=== PATIENT | female | born 1940 | race Caucasian/White ===

== ENCOUNTER 2024-06-05 06:05 | Inpatient (IN) | payer MEDICARE ==
[2024-06-05] VITALS (7 sets, daily range): BP systolic 110–122; BP diastolic 39–54; TEMP 97.6–98.2; O2SAT 96–98
[~2024-06-05] VITALS: Ht 152.4 cm; Wt 55.3 kg
[2024-06-05] MEDS ORDERED: ANESTHESIA TRAY IN PYXIS 1 EA TRAY MC ONE (07:01)
[2024-06-05] MEDS ORDERED: LIDOCAINE 2%-EPI 1:100,000 30 ML VIAL ONE (07:01)
[2024-06-05] MEDS ORDERED: dexaMETHasone SOD PHOSPHATE 1 ML ONE (07:01)
[2024-06-05] MEDS ORDERED: VANCOMYCIN 1 GM VIAL ONE (07:01)
[2024-06-05] MEDS ORDERED: FAMOTIDINE/PF INJ 20 MG/2 ML VIAL IV ONE (07:20)
[2024-06-05] MEDS ORDERED: FENTANYL PF 100MCG/2ML AMPUL ONE (07:20)
[2024-06-05] MEDS ORDERED: ACETAMINOPHEN 325 MG TABLET ONE (07:20)
[2024-06-05] MEDS ORDERED: ROCURONIUM BROMIDE 50 MG/5 ML ONE (07:21)
[2024-06-05] MEDS: ACETAMINOPHEN 325 MG TABLET PO PRN (07:27)
[2024-06-05] MEDS ORDERED: LEVO100T PO (10:28)
[2024-06-05] MEDS ORDERED: CALC0.253 PO (10:28)
[2024-06-05] MEDS ORDERED: ESCI10TA PO (10:28)
[2024-06-05] MEDS ORDERED: ASPI-1169 PO (10:28)
[2024-06-05] MEDS ORDERED: AMLO2.5T2 PO (10:28)
[2024-06-05] MEDS ORDERED: LOSA25TA27 PO (10:28)
[2024-06-05] MEDS ORDERED: CARV3.12 PO (10:28)
[2024-06-05] MEDS ORDERED: DONE10TA44 PO (10:28)
[2024-06-05] MEDS ORDERED: ATOR40TA PO (10:28)
[2024-06-05] MEDS ORDERED: LEVO75TA PO (10:29)
[2024-06-05] MEDS ORDERED: ACETAMINOPHEN 325 MG TABLET PO PRN ×2 (11:30→12:30)
[2024-06-05] MEDS ORDERED: ONDANSETRON HCL/PF 4 MG/2 ML VIAL IV PRN (12:30)
[2024-06-05] MEDS ORDERED: HYDROMORPHONE 1 MG/1 ML DISP.SYRIN IV PRN (12:30)
[2024-06-05] MEDS: IV NS 0.9% 1,000 ML IV PRN (12:31)
[2024-06-05] MEDS: CARVEDILOL 3.125 MG TABLET PO SCH (16:56)
[2024-06-05] MEDS: VANCOMYCIN 1 GM in IV D5W 250ml IV SCH (20:08)
[2024-06-06] MEDS: LEVOTHYROXINE SODIUM 75 MCG TABLET PO SCH (07:37)
[2024-06-06] MEDS: ASPIRIN 81 MG TAB.CHEW PO SCH (08:12)
[2024-06-06] MEDS: CALCITRIOL 0.25 MCG CAPSULE PO SCH (08:12)
[2024-06-06] MEDS: ATORVASTATIN 40 MG TABLET PO SCH (08:12)
[2024-06-06] MEDS: DONEPEZIL 5 MG TABLET PO SCH (08:12)
[2024-06-06] MEDS: ESCITALOPRAM OXALATE (10 MG) 10 MG TABLET PO SCH (08:12)
[2024-06-06 08:13] VITALS: BP 130/48
[2024-06-06] MEDS: LOSARTAN POTASSIUM 25 MG TABLET PO SCH (08:13)
[2024-06-06] MEDS: AMLODIPINE BESYLATE 2.5 MG TABLET PO SCH (08:13)
== END 2024-06-06 14:45 | disposition home or self-care (01) | DRG 496 ==
LOC: DS 06:05 → MED 10:19
PROVIDERS: ADMIT Internal Medicine; ATTEND Internal Medicine
PROC: 0N5R0ZZ Destruction of Maxilla, Open Approach (ICD-10-PCS; principal; 2024-06-05)
PROC: 0NUR07Z Supplement Maxilla with Autologous Tissue Substitute, Open Approach (ICD-10-PCS; 2024-06-05)
PROC: 0NSR04Z Reposition Maxilla with Internal Fixation Device, Open Approach (ICD-10-PCS; 2024-06-05)
DX: T84.69XA Infection and inflammatory reaction due to internal fixation device of other site, initial encounter (principal); S02.40CK Maxillary fracture, right side, subsequent encounter for fracture with nonunion; S02.40DK Maxillary fracture, left side, subsequent encounter for fracture with nonunion; K12.30 Oral mucositis (ulcerative), unspecified; K09.9 Cyst of oral region, unspecified; Y83.8 Other surgical procedures as the cause of abnormal reaction of the patient, or of later complication, without mention of misadventure at the time of the procedure; Y92.009 Unspecified place in unspecified non-institutional (private) residence as the place of occurrence of the external cause; M81.0 Age-related osteoporosis without current pathological fracture; M27.2 Inflammatory conditions of jaws; M19.90 Unspecified osteoarthritis, unspecified site; X58.XXXD Exposure to other specified factors, subsequent encounter; G30.9 Alzheimer's disease, unspecified; F02.80 Dementia in other diseases classified elsewhere, unspecified severity, without behavioral disturbance, psychotic disturbance, mood disturbance, and anxiety; I10 Essential (primary) hypertension; E89.0 Postprocedural hypothyroidism; W19.XXXA Unspecified fall, initial encounter; Y92.9 Unspecified place or not applicable; E78.5 Hyperlipidemia, unspecified; E11.69 Type 2 diabetes mellitus with other specified complication; Z79.84 Long term (current) use of oral hypoglycemic drugs; Z79.82 Long term (current) use of aspirin; Z79.899 Other long term (current) drug therapy; Z88.0 Allergy status to penicillin; Z88.8 Allergy status to other drugs, medicaments and biological substances
CPT/HCPCS: 87081-TC; A4223; A4338; C1713; G0378; J1100; J2405; J2704; J3010; J3370; J3490; J7030; J7050; J7060

== ENCOUNTER 2024-10-16 08:00 | Inpatient (IN) | payer MEDICARE ==
[~2024-10-16] VITALS: Ht 152.4 cm; Wt 63.5 kg
[~2024-10-16 08:00] MED LIST: AMLO2.5T2 PO; ASPI-1169 PO; ATOR40TA PO; CALC0.253 PO; CARV3.12 PO; DONE10TA44 PO; ESCI10TA PO; LEVO75TA PO; LOSA25TA27 PO
[2024-10-16] MEDS ORDERED: VANCOMYCIN 1 GM VIAL ONE (09:37)
[2024-10-16] MEDS ORDERED: OXYMETAZOLINE HCL NASAL SPRAY 30 ML BOTTLE NS ONE (09:37)
[2024-10-16] MEDS ORDERED: dexaMETHasone SOD PHOSPHATE 1 ML ONE (09:37)
[2024-10-16] MEDS ORDERED: LIDOCAINE 2%-EPI 1:100,000 30 ML VIAL ONE (09:37)
[2024-10-16] MEDS ORDERED: FENTANYL PF 100MCG/2ML AMPUL ONE (11:56)
[2024-10-16] MEDS ORDERED: HYDROMORPHONE 1 MG/1 ML DISP.SYRIN IV PRN (14:30)
[2024-10-16] MEDS ORDERED: ONDANSETRON HCL/PF 4 MG/2 ML VIAL IV PRN (14:30)
[2024-10-16] MEDS ORDERED: ACETAMINOPHEN 325 MG TABLET PO PRN (14:30)
[2024-10-16 15:00] VITALS: BP 145/57; TEMP 97.7; O2SAT 94
[2024-10-16] MEDS: IV NS 0.9% 1,000 ML IV PRN (15:06)
[2024-10-16 20:00] VITALS: BP 129/53; TEMP 98.5; O2SAT 94
[2024-10-17] MEDS: VANCOMYCIN 1 GM in IV D5W 250ml IV SCH (00:11)
[2024-10-17 08:00] VITALS: BP 138/55; TEMP 98.6; O2SAT 95
[2024-10-17 09:30] VITALS: BP 138/55
[2024-10-17] MEDS ORDERED: ONDANSETRON HCL/PF 4 MG/2 ML VIAL IVP PRN (09:30)
[2024-10-17] MEDS: AMLODIPINE BESYLATE 2.5 MG TABLET PO SCH (09:30)
[2024-10-17] MEDS ORDERED: Z GUARD REMEDY 4 OZ OINT TP PRN (09:30)
[2024-10-17] MEDS ORDERED: CARVEDILOL 3.125 MG TABLET PO SCH (17:00)
[2024-10-17] MEDS ORDERED: DONEPEZIL 5 MG TABLET PO SCH (22:00)
[2024-10-18] MEDS ORDERED: LEVOTHYROXINE SODIUM 75 MCG TABLET PO SCH (07:30)
[2024-10-18] MEDS ORDERED: ATORVASTATIN 40 MG TABLET PO SCH (09:00)
[2024-10-18] MEDS ORDERED: LOSARTAN POTASSIUM 25 MG TABLET PO SCH (09:00)
[2024-10-18] MEDS ORDERED: CALCITRIOL 0.25 MCG CAPSULE PO SCH (09:00)
[2024-10-18] MEDS ORDERED: ASPIRIN 81 MG TAB.CHEW PO SCH (09:00)
[2024-10-18] MEDS ORDERED: ESCITALOPRAM OXALATE (10 MG) 10 MG TABLET PO SCH (09:00)
== END 2024-10-17 12:09 | disposition home or self-care (01) | DRG 908 ==
LOC: DS 08:00 → MED 14:12
PROVIDERS: ADMIT Nurse Practitioner Acute Care; ATTEND Nurse Practitioner Acute Care
PROC: 0NPW04Z Removal of Internal Fixation Device from Facial Bone, Open Approach (ICD-10-PCS; 2024-10-16)
PROC: 0NUR07Z Supplement Maxilla with Autologous Tissue Substitute, Open Approach (ICD-10-PCS; 2024-10-16)
PROC: 0NPW07Z Removal of Autologous Tissue Substitute from Facial Bone, Open Approach (ICD-10-PCS; 2024-10-16)
PROC: 0NSR0ZZ Reposition Maxilla, Open Approach (ICD-10-PCS; 2024-10-16)
PROC: 0N5R0ZZ Destruction of Maxilla, Open Approach (ICD-10-PCS; principal; 2024-10-16 10:25)
DX: T86.831 Bone graft failure (principal); F02.A3 Dementia in other diseases classified elsewhere, mild, with mood disturbance; S02.40CK Maxillary fracture, right side, subsequent encounter for fracture with nonunion; T84.69XA Infection and inflammatory reaction due to internal fixation device of other site, initial encounter; S02.40DK Maxillary fracture, left side, subsequent encounter for fracture with nonunion; M86.9 Osteomyelitis, unspecified; Y83.2 Surgical operation with anastomosis, bypass or graft as the cause of abnormal reaction of the patient, or of later complication, without mention of misadventure at the time of the procedure; I10 Essential (primary) hypertension; Y92.009 Unspecified place in unspecified non-institutional (private) residence as the place of occurrence of the external cause; Y83.8 Other surgical procedures as the cause of abnormal reaction of the patient, or of later complication, without mention of misadventure at the time of the procedure; X58.XXXD Exposure to other specified factors, subsequent encounter; K13.70 Unspecified lesions of oral mucosa; E78.5 Hyperlipidemia, unspecified; Z79.899 Other long term (current) drug therapy; F32.A Depression, unspecified; M81.0 Age-related osteoporosis without current pathological fracture; M19.90 Unspecified osteoarthritis, unspecified site; E89.0 Postprocedural hypothyroidism; E11.69 Type 2 diabetes mellitus with other specified complication
CPT/HCPCS: A4223; A4338; C1713; G0378; J0461; J0690; J1100; J2704; J3010; J3370; J3490; J7030; J7050; J7060